=== PATIENT | male | born 1990 | race Caucasian/White ===

== ENCOUNTER → 2023-01-05 10:46 | Outpatient (BNVA) | payer OTHER, SELFPAY | PROVIDERS: PCP Family Medicine; Visit Provider Internal Medicine Pulmonary Disease | DX: R06.02 Shortness of breath (principal); J30.2 Other seasonal allergic rhinitis; G56.92 Unspecified mononeuropathy of left upper limb; M25.512 Pain in left shoulder; M79.602 Pain in left arm; R20.2 Paresthesia of skin; R59.9 Enlarged lymph nodes, unspecified; G47.19 Other hypersomnia; Z87.891 Personal history of nicotine dependence; J82.83 Eosinophilic asthma | CPT/HCPCS: 36415; 71046; 80053; 82164; 82785; 85025; 86003; 99204 ==

== ENCOUNTER → 2023-01-12 11:05 | Outpatient (BNVA) | payer OTHER, SELFPAY | PROVIDERS: PCP Family Medicine; Visit Provider Specialist | DX: R20.2 Paresthesia of skin (principal); G56.92 Unspecified mononeuropathy of left upper limb; G56.12 Other lesions of median nerve, left upper limb | CPT/HCPCS: 95910 ==

== ENCOUNTER → 2023-04-06 13:05 | Outpatient (BNVA) | payer OTHER, SELFPAY | PROVIDERS: PCP Family Medicine; Visit Provider Internal Medicine Pulmonary Disease | DX: J82.83 Eosinophilic asthma (principal); R59.0 Localized enlarged lymph nodes; Z87.891 Personal history of nicotine dependence; K21.9 Gastro-esophageal reflux disease without esophagitis; G47.33 Obstructive sleep apnea (adult) (pediatric); Z99.89 Dependence on other enabling machines and devices; Z57.8 Occupational exposure to other risk factors | CPT/HCPCS: 99214 ==

== ENCOUNTER → 2023-04-19 07:37 | Outpatient (BNVA) | payer OTHER, SELFPAY | PROVIDERS: PCP Family Medicine; Visit Provider Specialist | DX: G54.0 Brachial plexus disorders (principal) | CPT/HCPCS: 99204 ==

== ENCOUNTER 2023-10-30 12:45 | Outpatient (CLI) | payer OTHER, SELFPAY ==
--- NOTE | 2023-10-30 12:52 | USCV_ITS ---
John Platt Age: 33 Gender: M : 1990 Exam Date: 10/30/2023 12:58 Ordering Phys: Letitia Weinstein MD Technologist: DINORA Exam Location: [facility] [place] Indication: Phlebitis HISTORY: Phebitis. Palpable area inner thigh PROCEDURES: Venous duplex imaging was performed in only the right lower extremity. The following venous structures were evaluated: common femoral vein, profunda vein, proximal portion of the greater saphenous vein, superficial femoral vein, and the popliteal vein. In addition, the posterior tibial and peroneal trunk were evaluated. Serial compression, augmentation maneuvers, and spectral Doppler flow evaluation were performed. FINDINGS: No evidence of DVT seen in any vessel visualized at this time. AOI appears noncompressible without flow. CONCLUSIONS No DVT right lower extremity. Dr. Alecia Mullen DO (Electronically Signed) Final Date: 30 October 2023 13:31 S
== END 2023-10-30 12:46 | disposition home or self-care (01) ==
LOC: RAD 12:46
PROVIDERS: PCP Family Medicine; Visit Provider Family Medicine
DX: Z01.89 Encounter for other specified special examinations (principal)
CPT/HCPCS: 93971